=== PATIENT | female | born 1995 | race Caucasian/White ===

== ENCOUNTER 2017-08-19 21:11 | Emergency (ER) | payer MEDICAID ==
[~2017-08-19] VITALS: Ht 157.5 cm; Wt 58.7 kg
[~2017-08-19 21:11] MED LIST: CIPR500T3 PO; METR500T PO; TRAM50TA2 PO
[2017-08-19 22:01] LABS: MICROSCOPIC NOT IND
[2017-08-19 22:05] LABS: CULTURE INDICATED? NO
[2017-08-19 22:10] LABS: BASOPHILS # (AUTO) 0.12 x10^3/uL (0-0.1); BASOPHILS % (AUTO) 1 % (0-1); EOSINOPHILS # (AUTO) 0.35 x10^3/uL (0-0.4); EOSINOPHILS % (AUTO) 4 % (1-7); LYMPHOCYTES # (AUTO) 2.73 x10^3/uL (1-3.4); LYMPHOCYTES % (AUTO) 28 % (22-44); MD NO; MEAN CORPUSCULAR HEMOGLOBIN 31.1 pg (27.0-34.8); MEAN CORPUSCULAR HGB CONC 33.3 g/dL (32.4-35.8); MEAN CORPUSCULAR VOLUME 93.2 fL (80-100); MEAN PLATELET VOLUME 6.8 fL (7.4-10.4); MONOCYTES % (AUTO) 10 % (2-9); NEUTROPHILS # (AUTO) 5.51 x10^3/uL (1.8-6.8); NEUTROPHILS % (AUTO) 57 % (42-75); PLATELET COUNT 344 x10^3/uL (130-400); RED BLOOD COUNT 4.11 x10^6/uL (3.82-5.3); RED CELL DISTRIBUTION WIDTH 12.9 % (9.6-15.2)
[2017-08-19 22:19] LABS: ALANINE AMINOTRANSFERASE 17 U/L (12-78); ALBUMIN 3.5 g/dL (3.4-5.0); ANION GAP 6 mmol/L (5-15); CALCIUM 8.2 mg/dL (8.5-10.1); CHLORIDE 110 mmol/L (98-107); CREATININE 0.69 mg/dL (0.55-1.02)
[2017-08-19 22:36] LABS: ALKALINE PHOSPHATASE 91 U/L (45-117); BILIRUBIN,TOTAL 0.2 mg/dL (0.2-1.0); TOTAL PROTEIN 7.1 g/dL (6.4-8.2)
[2017-08-20 00:20] VITALS: BP 117/61
[2017-08-20] MEDS ORDERED: ROCURONIUM 10MG/ML,5ML ONE (01:03)
[2017-08-20] MEDS ORDERED: PROPOFOL 10 MG/ML, 20ML ONE (01:03)
[2017-08-20] MEDS ORDERED: CEFAZOLIN 1,000 MG ONE (01:03)
[2017-08-20] MEDS ORDERED: ONDANSETRON 2MG/ML, 2ML ONE (01:04)
[2017-08-20] MEDS ORDERED: LIDOCAINE-MPF 2% ,5ML ONE (01:04)
[2017-08-20] MEDS ORDERED: DEXAMETHASONE 4 MG/ML, 1ML ONE ×2 (01:04)
[2017-08-20] MEDS ORDERED: MIDAZOLAM 1 MG/ML, 2ML ONE (01:06)
[2017-08-20] MEDS ORDERED: FENTANYL PF 100 MCG/2ML ONE (01:07)
[2017-08-20] MEDS ORDERED: BUPIVACAINE/PF 0.25% ONE (01:08)
[2017-08-20] MEDS ORDERED: EPINEPHRINE 1 MG/ML, 1ML ONE (01:08)
[2017-08-20] MEDS ORDERED: ACETAMINOPHEN 325 MG TABLET PO PRN (01:30)
[2017-08-20] MEDS ORDERED: ALBUTEROL SULFATE 2.5 MG/3 ML NPPB PRN (01:30)
[2017-08-20] MEDS ORDERED: MEPERIDINE/PF 25MG/0.5ML IVPush PRN (01:30)
[2017-08-20] MEDS ORDERED: ONDANSETRON 2MG/ML, 2ML IVPush PRN (01:30)
[2017-08-20] MEDS ORDERED: EPHEDRINE 50 MG/ML, 1ML IVPush PRN (01:30)
[2017-08-20] MEDS ORDERED: METOPROLOL 1 MG/ML, 5ML IV PRN (01:30)
[2017-08-20] MEDS ORDERED: PROMETHAZINE 25 MG/ML, 1ML IV PRN (01:30)
[2017-08-20] MEDS ORDERED: FENTANYL PF 100 MCG/2ML IV PRN (01:30)
[2017-08-20] MEDS ORDERED: LABETALOL 5MG/ML, 20ML IV PRN (01:30)
[2017-08-20] MEDS ORDERED: hydrALAzine 20 MG/ML, 1ML IV PRN (01:30)
[2017-08-20] MEDS ORDERED: morphine SULFATE 10 MG/ML, 1ML IV PRN (01:30)
[2017-08-20] MEDS ORDERED: OXYcodone 5 MG/5 ML ORAL.SOL UDC PO PRN (01:30)
[2017-08-20] MEDS ORDERED: GLYCOPYRROLATE 0.4 MG/2 ML, 2ML ONE (02:00)
[2017-08-20] MEDS ORDERED: NEOSTIGMINE 1 MG/ML, 10ML ONE ×2 (02:00)
[2017-08-20] MEDS ORDERED: OXYC-302 PO (03:49)
[2017-08-20] MEDS ORDERED: IBUP-1222 PO (03:51)
[2017-08-20] MEDS ORDERED: HYDROcodone/APAP 7.5-325MG/15ML UDC PO PRN (04:00)
[2017-08-20] MEDS ORDERED: KETOROLAC 30 MG/1 ML IV PRN (04:00)
[2017-08-20] MEDS ORDERED: HYDROmorphone 1 MG/ML, 1ML IV PRN (04:00)
[2017-08-20] MEDS ORDERED: ONDANSETRON 2MG/ML, 2ML IV PRN (04:00)
[2017-08-20] MEDS ORDERED: IBUPROFEN 600 MG TABLET PO SCH (06:00)
== END 2017-08-20 05:15 | disposition home or self-care (01) ==
LOC: ED 23:59 → 4NOR 08-20 03:19 → ED 08-20 05:15
DX: O34.81 Maternal care for other abnormalities of pelvic organs, first trimester (principal); Z3A.01 Less than 8 weeks gestation of pregnancy; Z3A.08 8 weeks gestation of pregnancy; Z87.891 Personal history of nicotine dependence
CPT/HCPCS: 36415; 76801; 80053; 81003; 83690; 84702; 85025; 86850; 86900; 99291; J0171; J0690; J1100; J2250; J2405; J2704; J2710; J3010; J3490

== ENCOUNTER 2017-08-21 18:48 | Emergency (ER) | payer MEDICAID ==
[~2017-08-21] VITALS: Ht 160 cm; Wt 59.1 kg
[~2017-08-21 18:48] MED LIST changes: +IBUP-1222 PO; +OXYC-302 PO
[2017-08-21 18:49] VITALS: BP 128/71
== END 2017-08-21 19:41 | disposition home or self-care (01) ==
LOC: ED 19:35
DX: G89.18 Other acute postprocedural pain (principal); R10.84 Generalized abdominal pain; N99.89 Other postprocedural complications and disorders of genitourinary system
CPT/HCPCS: 99281

== ENCOUNTER 2020-04-15 20:25 | Emergency (ER) | payer MEDICAID ==
[~2020-04-15] VITALS: Ht 160 cm; Wt 50.2 kg
[2020-04-15] MEDS ORDERED: ACETAMINOPHEN 500 MG TABLET ONE (20:40)
[2020-04-15] MEDS ORDERED: ACETAMINOPHEN 500 MG TABLET PO ONE (21:00)
[2020-04-15 21:08] LABS: MICROSCOPIC INDICATED
[2020-04-15 21:32] LABS: ALBUMIN 3.7 g/dL (3.4-5.0); ANION GAP 2 mmol/L (5-15); CALCIUM 8.5 mg/dL (8.5-10.1); CHLORIDE 109 mmol/L (98-107); CREATININE 1.06 mg/dL (0.55-1.02)
[2020-04-15 21:35] LABS: BASOPHILS % (AUTO) 0 % (0-1); EOSINOPHILS % (AUTO) 1 % (1-7); LYMPHOCYTES % (AUTO) 15 % (22-44); MEAN CORPUSCULAR HEMOGLOBIN 31.3 pg (27.0-34.8); MEAN CORPUSCULAR HGB CONC 32.9 g/dL (32.4-35.8); MEAN PLATELET VOLUME 6.9 fL (7.4-10.4); MONOCYTES % (AUTO) 12 % (2-9); NEUTROPHILS % (AUTO) 72 % (42-75); PLATELET COUNT 332 x10^3/uL (130-400); RED BLOOD COUNT 3.91 x10^6/uL (3.82-5.3); RED CELL DISTRIBUTION WIDTH 11.6 % (9.6-15.2)
[2020-04-15 22:00] LABS: MD NO
--- NOTE | 2020-04-15 22:51 | NUR ---
CT PENDING HCG.
--- NOTE | 2020-04-15 23:05 | NUR ---
pt called to room from lobby
--- NOTE | 2020-04-15 23:31 | NUR ---
First contact with patient: patient presents to ER c/o R kidney pain. Patient thinks it is a kidney infection. Patient has a hx of kidney infections when she was younger. Patient is in NAD. Respirations even and unlabored.
[2020-04-15 23:52] LABS: HCG UR SG 1.025 (1.003-1.030)
[2020-04-16] MEDS ORDERED: SODIUM CHLORIDE FLUSH 10ML SYR IVF ONE
[2020-04-16] MEDS ORDERED: SODIUM CHLORIDE 0.9% 1,000ML IVBOLUS ONE
[2020-04-16] MEDS ORDERED: CEFTRIAXONE PMX 1GM/50ML 50 ML IV ONE
[2020-04-16] MEDS ORDERED: CEFTRIAXONE PMX 1GM/50ML 50 ML ONE (00:07)
--- NOTE | 2020-04-16 00:24 | NUR ---
Patient to CT.
[2020-04-16] MEDS ORDERED: KETOROLAC 30 MG/1 ML ONE (01:14)
[2020-04-16] MEDS ORDERED: ONDANSETRON 2MG/ML, 2ML ONE (01:14)
[2020-04-16] MEDS ORDERED: ONDANSETRON 2MG/ML, 2ML IVPush ONE (01:30)
[2020-04-16] MEDS ORDERED: KETOROLAC 30 MG/1 ML IVPush ONE (01:30)
[2020-04-16 02:01] VITALS: BP 124/69
== END 2020-04-16 02:03 | disposition home or self-care (01) ==
LOC: ED 04-16 01:40
DX: A41.9 Sepsis, unspecified organism (principal); N10 Acute pyelonephritis; R10.84 Generalized abdominal pain; R50.9 Fever, unspecified; R11.0 Nausea; F17.210 Nicotine dependence, cigarettes, uncomplicated
CPT/HCPCS: 36415; 74176; 80048; 81001; 81025; 82040; 85025; 87040; 87077; 87086; 87186; 96365; 96375; 99291; 99406; J0696; J1885; J2405; J7030

== ENCOUNTER 2020-04-16 16:09 | Inpatient (IN) | payer MEDICAID ==
[~2020-04-16] VITALS: Ht 160 cm; Wt 50.5 kg
[2020-04-16] MEDS ORDERED: SODIUM CHLORIDE FLUSH 10ML SYR IVF ONE (16:30)
[2020-04-16] MEDS ORDERED: PLEASE ENTER HEIGHT AND WEIGHT MC SCH (16:30)
[2020-04-16 16:53] LABS: ALBUMIN 3.1 g/dL (3.4-5.0); ANION GAP 4 mmol/L (5-15); CALCIUM 8.1 mg/dL (8.5-10.1); CHLORIDE 107 mmol/L (98-107)
[2020-04-16 16:56] LABS: ALANINE AMINOTRANSFERASE 20 U/L (12-78); ALKALINE PHOSPHATASE 80 U/L (45-117); BILIRUBIN,TOTAL 0.5 mg/dL (0.2-1.0); CREATININE 1.02 mg/dL (0.55-1.02); TOTAL PROTEIN 6.9 g/dL (6.4-8.2)
[2020-04-16 16:59] LABS: MEAN CORPUSCULAR HEMOGLOBIN 31.5 pg (27.0-34.8); MEAN CORPUSCULAR HGB CONC 33.3 g/dL (32.4-35.8); PLATELET COUNT 295 x10^3/uL (130-400); RED CELL DISTRIBUTION WIDTH 11.9 % (9.6-15.2)
[2020-04-16 17:36] LABS: MD YES
[2020-04-16 17:39] LABS: <PLATELET ESTIMATE> ADEQUATE; <PLT MORPHOLOGY> NORMAL PLT MORPH; <RBC MORPHOLOGY> NORMAL; BANDS%(MANUAL) 4 % (0-7); LYMPH#(MANUAL) 2.75 x10^3/uL (1-3.4); LYMPHS% (MANUAL) 11 % (22-44); MONOS#(MANUAL) 1.25 x10^3/uL (0.3-2.7); MONOS% (MANUAL) 5 % (2-9); SEGS% (MANUAL) 80 % (42-75)
[2020-04-16 18:54] LABS: MICROSCOPIC AUTO
[2020-04-16] MEDS ORDERED: CEFTRIAXONE PMX 1GM/50ML 50 ML IVPB ONE (19:30)
[2020-04-16] MEDS ORDERED: CEFTRIAXONE PMX 1GM/50ML 50 ML ONE (19:51)
[2020-04-16] MEDS ORDERED: hydrALAzine 20 MG/ML, 1ML IVPush PRN (22:00)
[2020-04-16] MEDS ORDERED: morphine SULFATE 10 MG/ML, 1ML IVPush PRN (22:00)
[2020-04-16 22:16] VITALS: BP 97/60
[2020-04-16] MEDS: KETOROLAC 30 MG/1 ML IV PRN (22:21)
[2020-04-16] MEDS: ACETAMINOPHEN 325 MG TABLET PO PRN (22:21)
[2020-04-16] MEDS: LACTATED RINGERS 1,000 ML IV SCH (22:21)
[2020-04-17 03:07] VITALS: BP 91/53
[2020-04-17 05:22] LABS: BASOPHILS % (AUTO) 0 % (0-1); EOSINOPHILS % (AUTO) 1 % (1-7); LYMPHOCYTES % (AUTO) 6 % (22-44); MEAN CORPUSCULAR HEMOGLOBIN 31.3 pg (27.0-34.8); MEAN PLATELET VOLUME 7.3 fL (7.4-10.4); MONOCYTES % (AUTO) 13 % (2-9); NEUTROPHILS % (AUTO) 80 % (42-75); PLATELET COUNT 279 x10^3/uL (130-400); RED BLOOD COUNT 3.74 x10^6/uL (3.82-5.3)
[2020-04-17 06:17] LABS: MD SCAN
[2020-04-17] MEDS: KETOROLAC 30 MG/1 ML IV PRN ×2 (06:27→17:11)
[2020-04-17] MEDS: ACETAMINOPHEN 325 MG TABLET PO PRN ×4 (06:27→20:45)
[2020-04-17] MEDS: LACTATED RINGERS 1,000 ML IV SCH ×2 (06:27→14:46)
[2020-04-17 06:44] LABS: ANION GAP 6 mmol/L (5-15); CHLORIDE 110 mmol/L (98-107); CREATININE 0.83 mg/dL (0.55-1.02)
[2020-04-17] MEDS: SENNA/DOCUSATE TABLET PO SCH (09:00)
[2020-04-17 09:48] VITALS: BP 102/55
[2020-04-17] MEDS: CEFTRIAXONE PMX 1GM/50ML 50 ML IV SCH ×2 (10:27→20:01)
[2020-04-17 14:43] VITALS: BP 101/61
[2020-04-17] MEDS: ONDANSETRON 2MG/ML, 2ML IVPush PRN (17:11)
[2020-04-17 20:04] VITALS: BP 103/66
[2020-04-18 01:17] VITALS: BP 87/45
[2020-04-18 01:46] VITALS: BP 98/60
[2020-04-18] MEDS: LACTATED RINGERS 1,000 ML IV SCH ×3 (01:47→20:01)
[2020-04-18 07:45] VITALS: BP 98/56
[2020-04-18] MEDS: ACETAMINOPHEN 325 MG TABLET PO PRN ×2 (08:07→20:36)
[2020-04-18] MEDS: SENNA/DOCUSATE TABLET PO SCH (08:09)
[2020-04-18] MEDS: ONDANSETRON 2MG/ML, 2ML IVPush PRN ×2 (08:49→19:26)
[2020-04-18] MEDS: CEFTRIAXONE PMX 1GM/50ML 50 ML IV SCH (08:50)
[2020-04-18] MEDS ORDERED: CIPROFLOXACIN LACTATE 200 MG in DEXTROSE 5% 100 ML IV SCH (10:30)
[2020-04-18 12:58] VITALS: BP 115/75
[2020-04-18 20:31] VITALS: BP 114/78
[2020-04-18] MEDS ORDERED: DEXTROSE 5% IV SCH (22:30)
[2020-04-18] MEDS ORDERED: CIPROFLOXACIN IV SCH (22:30)
[2020-04-18] MEDS: DEXTROSE 5% IV SCH (22:41)
[2020-04-18] MEDS: CIPROFLOXACIN LACTATE IV SCH (22:41)
[2020-04-19 03:12] VITALS: BP 115/74
[2020-04-19 07:38] VITALS: BP 110/68
[2020-04-19] MEDS: ACETAMINOPHEN 325 MG TABLET PO PRN (07:48)
[2020-04-19] MEDS: SENNA/DOCUSATE TABLET PO SCH (07:49)
[2020-04-19 08:08] LABS: BASOPHILS % (AUTO) 0 % (0-1); EOSINOPHILS % (AUTO) 1 % (1-7); LYMPHOCYTES % (AUTO) 19 % (22-44); MEAN CORPUSCULAR HEMOGLOBIN 32.2 pg (27.0-34.8); MEAN CORPUSCULAR HGB CONC 33.5 g/dL (32.4-35.8); MEAN PLATELET VOLUME 6.9 fL (7.4-10.4); MONOCYTES % (AUTO) 14 % (2-9); NEUTROPHILS % (AUTO) 66 % (42-75); PLATELET COUNT 333 x10^3/uL (130-400); RED BLOOD COUNT 3.51 x10^6/uL (3.82-5.3); RED CELL DISTRIBUTION WIDTH 11.8 % (9.6-15.2)
[2020-04-19 08:21] LABS: ANION GAP 5 mmol/L (5-15); CALCIUM 8.1 mg/dL (8.5-10.1); CHLORIDE 112 mmol/L (98-107); CREATININE 0.81 mg/dL (0.55-1.02)
[2020-04-19 08:40] LABS: MD SCAN
[2020-04-19] MEDS ORDERED: CIPR250T27 PO (09:04)
[2020-04-19] MEDS: CIPROFLOXACIN LACTATE IV SCH (10:26)
[2020-04-19] MEDS: DEXTROSE 5% IV SCH (10:26)
== END 2020-04-19 11:16 | disposition home or self-care (01) | DRG 872 ==
LOC: ED 20:30 → EDIP 21:10 → 3WST 21:43 → DCLOUNGE 04-19 11:05
PROVIDERS: ADMIT Family Medicine; ATTEND Hospitalist
DX: A41.59 Other Gram-negative sepsis (principal); N10 Acute pyelonephritis; B96.89 Other specified bacterial agents as the cause of diseases classified elsewhere; F17.200 Nicotine dependence, unspecified, uncomplicated; Z82.49 Family history of ischemic heart disease and other diseases of the circulatory system; Z72.89 Other problems related to lifestyle; Z90.722 Acquired absence of ovaries, bilateral; Z88.0 Allergy status to penicillin; Z88.2 Allergy status to sulfonamides
CPT/HCPCS: 36415; 80048; 80053; 81001; 83605; 85025; 87040; 87086; 96374; 96375; 99285; G0378; J0696; J1885; J2405; J0744; J7120